=== PATIENT | male | born 1985 | race Two or more races ===

== ENCOUNTER → 2024-09-30 | Outpatient (CLI) | payer MEDICAID, SELFPAY ==
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
--- NOTE | 2024-09-30 | XR_ITS ---
Examination: Cervical spine 4 views TECHNIQUE: AP lateral swimmer's lateral coned AP odontoid cervical spine 4 views Exam date and time: September 30, 2024 1237 hours INDICATIONS: Neck pain beginning one month ago. FINDINGS: Adequate alignment cervical vertebral bodies No cervical fracture Intact odontoid No significant cervical disc narrowing IMPRESSION: No cervical fracture No significant cervical disc narrowing If symptoms persist, consider MRI cervical spine follow-up to best assess for soft tissue disc protrusion producing radicular right shoulder and right hand pain
--- NOTE | 2024-09-30 | XR_ITS ---
Examination: Wrist, right 3 views Technique: Wrist AP, oblique, lateral 3 views Date and time of exam: September 30, 2024 1220 hours INDICATIONS: Neck pain wrist pain beginning one month ago FINDINGS: Moderate osteopenia Soft tissue vascular calcification No fracture No significant arthritic change IMPRESSION: No erosive or other significant arthritic change
--- NOTE | 2024-09-30 | XR_ITS ---
Examination: Shoulder,right, 3 views Technique: Shoulder AP internal rotation, AP external rotation, Y view shoulder, 3 views Exam date and time :September 30, 2024 1220 hours INDICATIONS: Right shoulder pain one month. FINDINGS: Mild narrowing glenohumeral joint No fracture or dislocation Mild osteoarthritis acromioclavicular joint IMPRESSION: Mild narrowing glenohumeral joint
--- NOTE | 2024-09-30 | XR_ITS ---
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
== END | disposition home or self-care (01) ==
LOC: CDIM 11:55
PROVIDERS: PCP Nurse Practitioner; Referring Provider Nurse Practitioner; Visit Provider Nurse Practitioner
DX: M51.369 Other intervertebral disc degeneration, lumbar region without mention of lumbar back pain or lower extremity pain (principal); M48.061 Spinal stenosis, lumbar region without neurogenic claudication; M19.041 Primary osteoarthritis, right hand; M25.531 Pain in right wrist; M54.2 Cervicalgia; M25.811 Other specified joint disorders, right shoulder
CPT/HCPCS: 72040; 72110; 73030; 73110; 73130

== ENCOUNTER → 2024-12-17 | Outpatient (CLI) | payer MEDICAID, SELFPAY ==
--- NOTE | 2024-12-17 10:29 | XR_ITS ---
Exam: elbow bilateral, 6 views Technique: Elbow AP, oblique lateral each elbow total 6 views Exam date and time: December 17, 2024 1038 hours INDICATIONS: Bilateral elbow pain beginning 6 weeks ago. FINDINGS: Mild bilateral elbow osteoarthritis No elbow fractures or dislocations IMPRESSION: Mild bilateral elbow osteoarthritis.
--- NOTE | 2024-12-17 10:29 | XR_ITS ---
Examination: Bilateral wrists 6 views TECHNIQUE: AP oblique lateral each wrist total 6 views Segment and time: December 17, 2024 1050 hours INDICATIONS: Bilateral wrist pain beginning 6 weeks ago FINDINGS: Mild narrowing radiocarpal joints bilaterally Mild osteopenia Old fracture deformity right ulnar styloid tip No acute fracture No avascular necrosis Also mild narrowing navicular trapezium first carpometacarpal joints No erosive arthritis IMPRESSION: Mild osteoarthritis as above
--- NOTE | 2024-12-17 10:29 | XR_ITS ---
Examination: Bilateral hands, 6 views. Technique: AP, Oblique, Lateral each hand total 6 views Date and time of exam: December 17, 2024 1038 hours INDICATIONS: Bilateral hand pain beginning 6 weeks ago Findings: Mild juxta-articular bone demineralization Old deformity right ulnar styloid tip Mild osteoarthritis interphalangeal joints bilaterally No erosive arthritis No cortical bone destruction No opaque foreign bodies IMPRESSION: Mild osteoarthritis
== END | disposition home or self-care (01) ==
LOC: CDIM 09:38
PROVIDERS: PCP Nurse Practitioner
DX: M19.022 Primary osteoarthritis, left elbow (principal); M19.021 Primary osteoarthritis, right elbow; M19.042 Primary osteoarthritis, left hand; M19.041 Primary osteoarthritis, right hand; M19.032 Primary osteoarthritis, left wrist; M19.031 Primary osteoarthritis, right wrist
CPT/HCPCS: 73080; 73110; 73130

== ENCOUNTER 2024-12-29 13:27 | Outpatient (RCR) | payer MEDICAID, SELFPAY | END 2025-01-01 23:59 | disposition home or self-care (01) | LOC: SCTC 13:27 | PROVIDERS: PCP Nurse Practitioner; Referring Provider Nurse Practitioner; Visit Provider Nurse Practitioner Family | DX: D69.3 Immune thrombocytopenic purpura (principal); E11.42 Type 2 diabetes mellitus with diabetic polyneuropathy; Z79.84 Long term (current) use of oral hypoglycemic drugs | CPT/HCPCS: 99212; G0463 ==

== ENCOUNTER 2025-02-25 13:26 | Outpatient (RCR) | payer MEDICAID, SELFPAY | END 2025-03-03 23:59 | disposition home or self-care (01) | LOC: SCTC 13:26 | PROVIDERS: PCP Nurse Practitioner; Referring Provider Nurse Practitioner; Visit Provider Nurse Practitioner Family | DX: D69.3 Immune thrombocytopenic purpura (principal); E11.42 Type 2 diabetes mellitus with diabetic polyneuropathy; Z79.84 Long term (current) use of oral hypoglycemic drugs; Z79.4 Long term (current) use of insulin | CPT/HCPCS: 96365; 96375; J1200; J1756; J2919; J3490; J7040; J7050 ==

== ENCOUNTER 2025-03-25 09:18 | Outpatient (RCR) | payer MEDICAID, SELFPAY | END 2025-04-03 23:59 | disposition home or self-care (01) | LOC: SCTC 09:18 | PROVIDERS: PCP Nurse Practitioner; Referring Provider Nurse Practitioner; Visit Provider Nurse Practitioner Family | DX: D50.9 Iron deficiency anemia, unspecified (principal); D69.3 Immune thrombocytopenic purpura; E11.42 Type 2 diabetes mellitus with diabetic polyneuropathy; Z87.19 Personal history of other diseases of the digestive system | CPT/HCPCS: 96365; 96375; 99212; A4216; J1642; J1756; J2919; J3490; J7040; J7050; G0463 ==

== ENCOUNTER → 2025-06-08 | Outpatient (CLI) | payer MEDICAID, SELFPAY ==
--- NOTE | 2025-06-08 | XR_ITS ---
Examination: Abdomen sonogram, complete Date and time of exam: June 08, 2025 at 0818 hours INDICATIONS: CT examination May 03, 2023 septated cystic mass contiguous with the pancreas, elevated lipase and amylase on laboratory examination one week ago. Technique: Multiple real-time grayscale transabdominal sonographic images of the abdomen have been obtained. Findings: Normal gallbladder. Normal common bile duct 0.3 cm Pancreas obscured by bowel gas Mid and distal aorta visualized not enlarged Liver 14.6 cm smooth contour no focal liver lesions Normal hepatopedal portal venous flow Patent IVC Right kidney 12.0 cm renal cortex 2.2 cm Left kidney 12.7 cm cortex 3.2 cm Spleen 10.8 cm Cystic mass inferior to the spleen and above the left kidney 7.3 x 8.3 x 9.0 cm most consistent with pseudocyst IMPRESSION: Cystic mass below the spleen 7.3 x 8.3 x 9.0 cm most consistent with pseudocyst
== END | disposition home or self-care (01) ==
LOC: CDIM 07:47
PROVIDERS: PCP Nurse Practitioner Family; Referring Provider Nurse Practitioner Family; Visit Provider Nurse Practitioner Family
DX: D73.4 Cyst of spleen (principal)
CPT/HCPCS: 76700

== ENCOUNTER 2025-06-23 09:15 | Outpatient (RCR) | payer MEDICAID, SELFPAY | END 2025-07-04 23:59 | disposition home or self-care (01) | LOC: SCTC 09:15 | PROVIDERS: PCP Nurse Practitioner; Referring Provider Nurse Practitioner Family; Visit Provider Nurse Practitioner Family | DX: D50.9 Iron deficiency anemia, unspecified (principal); E11.40 Type 2 diabetes mellitus with diabetic neuropathy, unspecified; Z79.84 Long term (current) use of oral hypoglycemic drugs; Z86.2 Personal history of diseases of the blood and blood-forming organs and certain disorders involving the immune mechanism | CPT/HCPCS: 99212; G0463 ==

== ENCOUNTER 2025-09-23 09:34 | Outpatient (RCR) | payer MEDICAID, SELFPAY | END 2025-10-03 23:59 | disposition home or self-care (01) | LOC: SCTC 09:34 | PROVIDERS: PCP Nurse Practitioner Family; Referring Provider Nurse Practitioner Family; Visit Provider Nurse Practitioner Family | DX: D69.3 Immune thrombocytopenic purpura (principal); D50.9 Iron deficiency anemia, unspecified; K92.1 Melena; E11.42 Type 2 diabetes mellitus with diabetic polyneuropathy | CPT/HCPCS: 99212; G0463 ==